=== PATIENT | female | born 1995 | race Caucasian/White ===

== ENCOUNTER 2016-04-24 10:10 | Emergency (ER) | payer OTHER ==
[~2016-04-24] VITALS: Ht 162.6 cm; Wt 95.0 kg
[~2016-04-24 10:10] MED LIST: FLOMAX0.4 MG PO; KEFLEX500 MG PO; NAPROSYN500 MG PO; PEN-VEE K,VEET500 MG PO; PERCOCET 5/31 TABLET PO; PREDNISONE50 MG PO; ZOFRAN4 MG PO
[2016-04-24 13:34] LABS: EOSINOPHIL (%) 0.3 % (0-5); HEMATOCRIT 31.4 % (36.0-46.0); IMMATURE GRANULOCYTE (%) 0.2 % (0.0-0.7); IMMATURE GRANULOCYTE COUNT 0.2 K/uL; LYMPHOCYTE COUNT 1.5 K/uL (1.0-2.8); MCH 29.1 PG (29.0-34.0); MCHC 34.7 G/DL (30.0-36.0); MEAN PLAT.VOLUME 10.6 uM^3 (9.5-12.4); MONOCYTE (%) 7.8 % (3-12); MONOCYTE COUNT 0.8 K/uL (0-0.8); NEUTROPHIL (%) 76.8 % (45-76); NEUTROPHIL COUNT 7.8 K/uL (1.8-6.4); PLATELET COUNT 260 K/uL (156-360); RBC DIS.WIDTH-CV 12.7 % (11.8-14.6); RBC DIS.WIDTH-SD 37.9 % (39-53); RED BLOOD COUNT 3.74 M/uL (3.80-5.20); WHITE BLOOD COUNT 10.1 K/uL (4.1-10.2)
[2016-04-24 13:42] LABS: CHLORIDE 109 mEq/L (99-109); POTASSIUM 3.1 mEq/L (3.7-5.4); SODIUM 137 mEq/L (136-147)
[2016-04-24 13:44] LABS: GLUCOSE 116 mg/dL (70-99)
[2016-04-24 13:45] LABS: ANION GAP 8 MEQ/L (2-14)
[2016-04-24 13:46] LABS: TOTAL BILIRUBIN 0.9 mg/dL (0.0-1.0)
[2016-04-24 13:47] LABS: ALKALINE PHOSPHATASE 102 IU/L (3-129); GFR ESTIMATE (CALCULATED) > 59 mL/min/
[2016-04-24 13:49] LABS: UREA NITROGEN (BUN) 5 mg/dL (9-23)
[2016-04-24] MEDS ORDERED: PRENATAL TABLE1 EAC3 PO (14:00)
[2016-04-24 15:04] LABS: ADD MIUA? YES; BILIRUBIN SMALL; BLOOD NEGATIVE; COLOR DK YELLOW ((YELLOW)); GLUCOSE (STRIP) NEGATIVE; KETONES 40; LEUKOCYTES LARGE; NITRITE NEGATIVE; PROTEIN (STRIP) TRACE; SPECIFIC GRAVITY 1.022 (1.000-1.030)
[2016-04-24 15:29] LABS: BACTERIA 1+; CASTS NONE SEEN /LPF; CRYSTALS NONE SEEN; EPITHELIAL CELLS 2+; MUCUS TRACE; RED BLOOD CELLS 0-5 /HPF (0-5); UCUL ADDED? NO; WHITE BLOOD CELLS 20-30 /HPF (0-5)
[2016-04-24] MEDS ORDERED: MACROBID100 MG PO (16:06)
[2016-04-24] MEDS ORDERED: PEPCID20 MG PO (16:06)
[2016-04-24 16:34] VITALS: BP 125/57
== END 2016-04-24 16:46 | disposition home or self-care (01) ==
LOC: EME 10:10
PROVIDERS: Physician Assistant
DX: O23.43 Unspecified infection of urinary tract in pregnancy, third trimester (principal); E87.6 Hypokalemia; K21.9 Gastro-esophageal reflux disease without esophagitis; Z3A.31 31 weeks gestation of pregnancy
CPT/HCPCS: 71020; 80053; 81003; 85025; 93005; 99281; 99285

== ENCOUNTER 2016-05-07 18:24 | Outpatient (CLI) | payer OTHER ==
[~2016-05-07] VITALS: Ht 162.6 cm; Wt 95.5 kg
[~2016-05-07 18:24] MED LIST changes: +MACROBID100 MG PO; +PEPCID20 MG PO; +PRENATAL TABLE1 EAC3 PO
[2016-05-07 19:03] VITALS: BP 116/70
[2016-05-07 19:35] VITALS: BP 116/68
[2016-05-07 21:02] LABS: ADD MIUA? YES; BILIRUBIN NEGATIVE; BLOOD TRACE; COLOR YELLOW ((YELLOW)); GLUCOSE (STRIP) NEGATIVE; KETONES NEGATIVE; LEUKOCYTES LARGE; NITRITE NEGATIVE; PROTEIN (STRIP) NEGATIVE; SPECIFIC GRAVITY 1.019 (1.000-1.030)
[2016-05-07 21:21] VITALS: BP 112/65
[2016-05-07 21:21] LABS: AMPHETAMINES QUANT VALUE 0 NG/ML; BARBITUATES QUANT VALUE 0 NG/ML; BENZODIAZEPINES QUANT VALUE 0 NG/ML; BENZODIAZEPINES, URINE SCREEN Negative (200 ng/mL); MARIJUANA QUANT VALUE 0 NG/ML; OPIATES QUANTITATIVE VALUE 0 NG/ML; PHENCYCLIDINE QUANT VALUE 0 NG/ML
[2016-05-07 21:31] LABS: RED BLOOD CELLS 0-5 /HPF (0-5); WHITE BLOOD CELLS 15-20 /HPF (0-5)
[2016-05-07 21:33] LABS: BACTERIA 3+; EPITHELIAL CELLS 1+; MUCUS 1+
[2016-05-07 21:34] LABS: CASTS NONE SEEN /LPF; CRYSTALS NONE SEEN; OTHER TRICHOMONAS
[2016-05-07] MEDS ORDERED: FLAGYL500 MG PO (21:41)
[2016-05-07 21:45] LABS: CANDIDA DNA PROBE POSITIVE; GARDNERELLA DNA PROBE NEGATIVE; INTERNAL CONTROL VALID? YES
[2016-05-07 21:52] LABS: EOSINOPHIL (%) 0.4 % (0-5); HEMATOCRIT 31.2 % (36.0-46.0); IMMATURE GRANULOCYTE (%) 0.2 % (0.0-0.7); LYMPHOCYTE COUNT 1.8 K/uL (1.0-2.8); MCV 85.2 FL (83-99); MEAN PLAT.VOLUME 10.5 uM^3 (9.5-12.4); MONOCYTE (%) 9.6 % (3-12); MONOCYTE COUNT 0.9 K/uL (0-0.8); NEUTROPHIL (%) 70.8 % (45-76); NEUTROPHIL COUNT 6.5 K/uL (1.8-6.4); PLATELET COUNT 220 K/uL (156-360); RBC DIS.WIDTH-SD 40.1 % (39-53); RED BLOOD COUNT 3.66 M/uL (3.80-5.20); WHITE BLOOD COUNT 9.2 K/uL (4.1-10.2)
== END 2016-05-07 22:08 | disposition home or self-care (01) ==
LOC: LDRP-OP → 2WEST 18:25 → LDRP-OP 07-29 15:21
PROVIDERS: Advanced Practice Midwife
DX: O46.93 Antepartum hemorrhage, unspecified, third trimester (principal); O99.89 Other specified diseases and conditions complicating pregnancy, childbirth and the puerperium; Z3A.32 32 weeks gestation of pregnancy
CPT/HCPCS: 59025; 76805; 81003; 85025; 87086; 87480; 87510; 87660; G0378

== ENCOUNTER 2016-06-17 13:12 | Outpatient (CLI) | payer OTHER ==
[~2016-06-17 13:12] MED LIST changes: +FLAGYL500 MG PO
[2016-06-17 13:33] VITALS: BP 122/72
== END 2016-06-17 18:25 | disposition home or self-care (01) ==
LOC: LDRP-OP → 2WEST 13:13 → LDRP-OP 07-29 22:21
DX: O36.8130 Decreased fetal movements, third trimester, not applicable or unspecified (principal); Z3A.38 38 weeks gestation of pregnancy; O26.893 Other specified pregnancy related conditions, third trimester; R10.2 Pelvic and perineal pain; M54.5 Low back pain; O99.213 Obesity complicating pregnancy, third trimester; E66.9 Obesity, unspecified; O99.820 Streptococcus B carrier state complicating pregnancy
CPT/HCPCS: 59025; 76818; G0378

== ENCOUNTER 2016-06-26 16:32 | Outpatient (CLI) | payer OTHER ==
[~2016-06-26] VITALS: Ht 162.6 cm; Wt 95.0 kg
[2016-06-26 16:46] VITALS: BP 132/80
[2016-06-26 17:41] LABS: AMPHETAMINES QUANT VALUE 0 NG/ML; BARBITUATES QUANT VALUE 0 NG/ML; BENZODIAZEPINES QUANT VALUE 0 NG/ML; BENZODIAZEPINES, URINE SCREEN Negative (200 ng/mL); MARIJUANA QUANT VALUE 0 NG/ML; OPIATES QUANTITATIVE VALUE 0 NG/ML; PHENCYCLIDINE QUANT VALUE 0 NG/ML
== END 2016-06-26 17:51 | disposition home or self-care (01) ==
LOC: LDRP-OP 16:32 → 2WEST 16:33 → LDRP-OP 07-29 22:10
PROVIDERS: Advanced Practice Midwife
DX: O47.1 False labor at or after 37 completed weeks of gestation (principal); Z3A.39 39 weeks gestation of pregnancy
CPT/HCPCS: 59025; 80306 90; G0378

== ENCOUNTER 2016-06-26 21:23 | Outpatient (CLI) | payer OTHER ==
[~2016-06-26] VITALS: Ht 160 cm; Wt 94.8 kg
[2016-06-26 21:43] VITALS: BP 119/75
[2016-06-27 02:13] LABS: ADD MIUA? NO; BILIRUBIN NEGATIVE; BLOOD NEGATIVE; COLOR YELLOW ((YELLOW)); GLUCOSE (STRIP) NEGATIVE; KETONES NEGATIVE; LEUKOCYTES NEGATIVE; NITRITE NEGATIVE; PROTEIN (STRIP) NEGATIVE; SPECIFIC GRAVITY 1.016 (1.000-1.030)
[2016-06-27 05:08] LABS: CANDIDA DNA PROBE NEGATIVE; GARDNERELLA DNA PROBE NEGATIVE; INTERNAL CONTROL VALID? YES
[2016-06-28 12:58] LABS: CHLAMYDIA TRACHOMATIS NEGATIVE; NEISSERIA GONORRHOEAE NEGATIVE
== END 2016-06-27 01:10 | disposition left against medical advice (07) ==
LOC: LDRP-OP 21:23 → 2WEST 21:24 → LDRP-OP 07-29 18:25
PROVIDERS: Advanced Practice Midwife; Obstetrics & Gynecology
DX: O47.1 False labor at or after 37 completed weeks of gestation (principal); Z3A.39 39 weeks gestation of pregnancy
CPT/HCPCS: 59025; 81003; 87086; 87480; 87491; 87510; 87591; 87660; G0378

== ENCOUNTER 2016-06-28 08:20 | Inpatient (IN) | payer OTHER ==
[2016-06-28] VITALS (20 sets, daily range): BP systolic 114–141; BP diastolic 63–89
[~2016-06-28] VITALS: Ht 162.6 cm; Wt 94.8 kg
[2016-06-28 09:26] LABS: EOSINOPHIL (%) 0.3 % (0-5); HEMATOCRIT 35.4 % (36.0-46.0); IMMATURE GRANULOCYTE (%) 0.2 % (0.0-0.7); LYMPHOCYTE COUNT 1.5 K/uL (1.0-2.8); MCHC 33.1 G/DL (30.0-36.0); MCV 81.6 FL (83-99); MEAN PLAT.VOLUME 11.2 uM^3 (9.5-12.4); MONOCYTE (%) 5.6 % (3-12); MONOCYTE COUNT 0.6 K/uL (0-0.8); NEUTROPHIL (%) 80.8 % (45-76); NEUTROPHIL COUNT 9.1 K/uL (1.8-6.4); PLATELET COUNT 253 K/uL (156-360); RBC DIS.WIDTH-CV 13.5 % (11.8-14.6); RBC DIS.WIDTH-SD 40.5 % (39-53); RED BLOOD COUNT 4.34 M/uL (3.80-5.20); WHITE BLOOD COUNT 11.3 K/uL (4.1-10.2)
[2016-06-29] VITALS (10 sets, daily range): BP systolic 105–130; BP diastolic 53–77
[2016-06-30 02:31] VITALS: BP 102/67
[2016-06-30 07:30] LABS: EOSINOPHIL (%) 0.1 % (0-5); HEMATOCRIT 27.4 % (36.0-46.0); IMMATURE GRANULOCYTE (%) 0.5 % (0.0-0.7); IMMATURE GRANULOCYTE COUNT 0.1 K/uL; INSTRUMENT ABS NEUTROPHIL CT 12.4 K/uL; MCH 26.6 PG (29.0-34.0); MCHC 32.5 G/DL (30.0-36.0); MCV 81.8 FL (83-99); MEAN PLAT.VOLUME 10.9 uM^3 (9.5-12.4); MONOCYTE (%) 8.8 % (3-12); MONOCYTE COUNT 1.3 K/uL (0-0.8); NEUTROPHIL (%) 83.7 % (45-76); NEUTROPHIL COUNT 12.4 K/uL (1.8-6.4); PLATELET COUNT 210 K/uL (156-360); RBC DIS.WIDTH-CV 13.7 % (11.8-14.6); RBC DIS.WIDTH-SD 40.4 % (39-53)
[2016-06-30 08:00] LABS: RED BLOOD COUNT 3.35 M/uL (3.80-5.20); WHITE BLOOD COUNT 14.7 K/uL (4.1-10.2)
[2016-06-30 10:10] VITALS: BP 105/57
[2016-06-30 11:42] VITALS: BP 103/64
[2016-06-30 19:20] VITALS: BP 118/69
[2016-06-30 23:12] VITALS: BP 124/76
[2016-07-01 07:24] VITALS: BP 119/74
[2016-07-01] MEDS ORDERED: FERROUS SULFAT325 MG PO (10:09)
[2016-07-01] MEDS ORDERED: IBUPROFEN800 MG PO (10:09)
[2016-07-01] MEDS ORDERED: ENDOCET 5-3251 EACH PO (10:09)
== END 2016-07-01 12:09 | disposition home or self-care (01) | DRG 765 ==
LOC: LDRP-OP 08:20 → 2WEST 08:21 → LDRP-OP 07-29 01:18
PROVIDERS: Advanced Practice Midwife; Obstetrics & Gynecology
PROC: 10907ZC Drainage of Amniotic Fluid, Therapeutic from Products of Conception, Via Natural or Artificial Opening (ICD-10-PCS; principal; 2016-06-28)
PROC: 3E0S3CZ (ICD-10-PCS; 2016-06-29)
PROC: 10D00Z1 Extraction of Products of Conception, Low, Open Approach (ICD-10-PCS; 2016-06-29)
PROC: 00HU33Z Insertion of Infusion Device into Spinal Canal, Percutaneous Approach (ICD-10-PCS; 2016-06-29)
DX: O62.1 Secondary uterine inertia (principal); D62 Acute posthemorrhagic anemia; E66.9 Obesity, unspecified; Z68.35 Body mass index [BMI] 35.0-35.9, adult; Z37.0 Single live birth; O99.824 Streptococcus B carrier state complicating childbirth; O77.0 Labor and delivery complicated by meconium in amniotic fluid; Z3A.40 40 weeks gestation of pregnancy; O99.02 Anemia complicating childbirth; O99.214 Obesity complicating childbirth; O69.81X0 Labor and delivery complicated by cord around neck, without compression, not applicable or unspecified
CPT/HCPCS: 85025; C1755; G0378; J0595; J0690; J1885; J2175; J2210; J2274; J2540; J7120

== ENCOUNTER 2017-09-26 01:15 | Emergency (ER) | payer OTHER ==
[~2017-09-26] VITALS: Ht 165.1 cm; Wt 109.0 kg
[~2017-09-26 01:15] MED LIST changes: +ENDOCET 5-3251 EACH PO; +FERROUS SULFAT325 MG PO; +IBUPROFEN800 MG PO
[2017-09-26 01:23] VITALS: BP 120/87
[2017-09-26] MEDS ORDERED: MOTRIN600 MG PO (02:28)
== END 2017-09-26 02:37 | disposition home or self-care (01) ==
LOC: EME 01:15
DX: J02.9 Acute pharyngitis, unspecified (principal)
CPT/HCPCS: 87651 90; 99281; 99283